=== PATIENT | female | born 1985 | race Two or more races ===

== ENCOUNTER 2020-10-03 07:35 | Emergency (ER) | payer MEDICAID ==
[~2020-10-03] VITALS: Ht 172.7 cm; Wt 118.0 kg
[2020-10-03] MEDS ORDERED: AMOX-424 PO (08:11)
[2020-10-03] MEDS ORDERED: TOPUD PO (08:11)
[2020-10-03] MEDS ORDERED: ACETAMINOPHEN 325MG TABLET PO ONE (08:15)
[2020-10-03 08:20] VITALS: BP 159/78
== END 2020-10-03 08:30 | disposition home or self-care (01) ==
LOC: ER 07:35
DX: J02.9 Acute pharyngitis, unspecified (principal); I10 Essential (primary) hypertension; Z86.39 Personal history of other endocrine, nutritional and metabolic disease
CPT/HCPCS: 87070; 87430; 99283

== ENCOUNTER 2021-01-31 15:48 | Emergency (ER) | payer MEDICAID ==
[~2021-01-31] VITALS: Ht 172.7 cm; Wt 109.0 kg
[~2021-01-31 15:48] MED LIST: AMOX-424 PO; TOPUD PO
[2021-01-31] MEDS ORDERED: CLONIDINE 0.2MG TABLET PO ONE (17:30)
[2021-01-31] MEDS ORDERED: SULFAMETHOXAZOLE/TRIMETHOPRIM 800/160MG TABLET PO ONE (17:30)
[2021-01-31] MEDS ORDERED: LIDOCAINE HCL/PF 1% 10 MG/ML 5ML VIAL INFIL ONE (17:30)
[2021-01-31] MEDS ORDERED: LIDOCAINE HCL/EPINEPHRINE 1%-EPI 1:100,000 20 ML VIAL INFIL ONE (17:30)
[2021-01-31] MEDS ORDERED: CEFTRIAXONE SODIUM 1 G/VIAL IM ONE (17:30)
[2021-01-31] MEDS ORDERED: BACITRACIN ZINC OINT UDPKT TOP ONE (17:30)
[2021-01-31] MEDS ORDERED: ACETAMINOPHEN 325MG TABLET PO ONE (17:30)
[2021-01-31] MEDS ORDERED: MORPHINE SULFATE 4 MG/ML CPJ (NOT FOR IM USE) IV ONE (18:30)
[2021-01-31] MEDS ORDERED: ONDANSETRON HCL 4MG/2ML INJ IV ONE (18:30)
[2021-01-31] MEDS ORDERED: CEPH500T MT (18:32)
[2021-01-31] MEDS ORDERED: IBUP-2030 MT (18:32)
[2021-01-31] MEDS ORDERED: SULF1TAB48 MT (18:32)
[2021-01-31] MEDS ORDERED: MORPHINE SULFATE 2 MG/ML CPJ (NOT FOR IM USE) IV NR (18:45)
[2021-01-31 20:17] VITALS: BP 132/87
== END 2021-01-31 20:11 | disposition home or self-care (01) ==
LOC: ER 15:48
DX: L03.114 Cellulitis of left upper limb (principal)
CPT/HCPCS: 10060; 81025; 96372; 96374; 96375; 99284; J0696; J2270; J2405; J3490

== ENCOUNTER 2023-12-30 00:27 | Emergency (ER) | payer MEDICAID, MEDICARE ==
[~2023-12-30] VITALS: Ht 175.3 cm; Wt 109.0 kg
[~2023-12-30 00:27] MED LIST changes: +CEPH500T MT; +IBUP-2030 MT; +SULF1TAB48 MT
[2023-12-30 00:30] VITALS: O2SAT 98
[2023-12-30 00:36] VITALS: BP 202/115; PULSE 101; RESP 14; TEMP 98.2; O2SAT 99
== END 2023-12-30 01:47 | disposition left against medical advice (07) ==
LOC: ER 00:44
DX: R10.30 Lower abdominal pain, unspecified (principal); Z53.21 Procedure and treatment not carried out due to patient leaving prior to being seen by health care provider